=== PATIENT | male | born 1965 | race Caucasian/White ===

== ENCOUNTER → 2022-05-23 | Outpatient (REF) | payer OTHER | LOC: M LAB REF 16:31 | PROVIDERS: ATTEND Internal Medicine | DX: E03.9 Hypothyroidism, unspecified (principal) ==

== ENCOUNTER → 2022-05-29 | Outpatient (REF) | payer OTHER ==
[2022-05-31 19:11] LABS: ENDOMYSIAL ABY IgA Negative (Negative); TISSUE TRANSGLUTAMINASE IgA <2 U/mL (0-3)
== END ==
LOC: M LAB REF 17:01
PROVIDERS: ATTEND Internal Medicine
DX: E03.9 Hypothyroidism, unspecified (principal)

== ENCOUNTER 2022-10-08 07:33 | Day surgery (SDC) | payer OTHER ==
[~2022-10-08] VITALS: Ht 167.6 cm; Wt 63.1 kg
[~2022-10-08 07:33] MED LIST: ASCO500C3 PO; NS 1,000 ML IV ONE; THERTAB52 PO; VITA100093 PO; propofoL 200 MG/20 ML VIAL As Ordered ONE
[2022-10-08] MEDS ORDERED: propofoL 200 MG/20 ML VIAL As Ordered ONE (08:42)
[2022-10-08 08:53] VITALS: TEMP 97.6
[2022-10-08 09:15] VITALS: BP 104/67; O2SAT 96
== END 2022-10-08 09:18 | disposition home or self-care (01) ==
LOC: M OPP 07:33
PROVIDERS: ATTEND Internal Medicine Gastroenterology
DX: Z12.11 Encounter for screening for malignant neoplasm of colon (principal); K64.0 First degree hemorrhoids

== ENCOUNTER → 2024-07-14 | Outpatient (REF) | payer OTHER ==
[~2024-07-14] MED LIST changes: -NS 1,000 ML IV ONE; -propofoL 200 MG/20 ML VIAL As Ordered ONE
== END ==
LOC: M LAB REF 13:32
PROVIDERS: ATTEND Internal Medicine
DX: E03.9 Hypothyroidism, unspecified (principal); E06.3 Autoimmune thyroiditis